=== PATIENT | female | born 1975 | race Caucasian/White ===

== ENCOUNTER 2017-01-21 14:14 | Emergency (ER) | payer OTHER ==
[~2017-01-21] VITALS: Ht 162.6 cm; Wt 114.3 kg
[~2017-01-21 14:14] MED LIST: ADVAIR 250/501 DISK IH; AMBIEN5 MG PO; DIFLUCAN150 MG PO; DUONEB 2.5-0.5 M3 ML IH; DURICEF500 MG PO; ERGOCALCIF50000 UNIT PO; ESTRACE1 MG PO; FOLIC ACID1 MG PO; KEFLEX250 MG PO; LEXAPRO20 MG PO; MELATONIN5 M1 PO; METRO GEL 1%60 GM TP; MS CONTIN,ORAMO15 M1 PO; PEPCID20 MG PO; PERCOCET 5/31 TABLET PO; PROZAC40 MG PO; SINGULAIR10 MG PO; TEMOVATE 0.05%30 GM TP; VENTOLIN HFA18 GM IH; XANAX0.25 MG PO; ZOFRAN4 MG PO
[2017-01-21 15:44] LABS: HEMATOCRIT 38.6 % (36.0-46.0); MCH 28.2 PG (29.0-34.0); MCHC 31.3 G/DL (30.0-36.0); MEAN PLAT.VOLUME 9.1 uM^3 (9.5-12.4); PLATELET COUNT 347 K/uL (156-360); RBC DIS.WIDTH-CV 13.1 % (11.8-14.6); RBC DIS.WIDTH-SD 43.2 % (39-53); RED BLOOD COUNT 4.29 M/uL (3.80-5.20); WHITE BLOOD COUNT 7.8 K/uL (4.1-10.2)
[2017-01-21 15:54] LABS: CHLORIDE 102 mEq/L (99-109); POTASSIUM 3.6 mEq/L (3.7-5.4); SODIUM 141 mEq/L (136-147)
[2017-01-21 15:56] LABS: GLUCOSE 79 mg/dL (70-99)
[2017-01-21 15:57] LABS: ANION GAP 12 MEQ/L (2-14)
[2017-01-21 15:59] LABS: GFR ESTIMATE (CALCULATED) > 59 mL/min/
[2017-01-21 16:00] LABS: UREA NITROGEN (BUN) 9 mg/dL (9-23)
[2017-01-21 16:04] LABS: TROP-I INTERPRETATION NEGATIVE; TROPONIN-I < 0.01 ng/mL (0.0-0.30)
[2017-01-21] MEDS ORDERED: ZITHROMAX250 MG PO (19:10)
[2017-01-21] MEDS ORDERED: ALBUTEROL0.63 MG/3 IH (19:10)
[2017-01-21] MEDS ORDERED: FLEXERIL10 MG PO (19:10)
[2017-01-21 19:26] LABS: TROP-I INTERPRETATION NEGATIVE; TROPONIN-I < 0.01 ng/mL (0.0-0.30)
[2017-01-21 19:31] VITALS: BP 110/95
== END 2017-01-21 19:35 | disposition home or self-care (01) ==
LOC: EME 14:14
PROVIDERS: Nurse Practitioner Family
DX: J18.9 Pneumonia, unspecified organism (principal); S20.211A Contusion of right front wall of thorax, initial encounter; J45.909 Unspecified asthma, uncomplicated; W01.0XXA Fall on same level from slipping, tripping and stumbling without subsequent striking against object, initial encounter; Y93.01 Activity, walking, marching and hiking; K21.9 Gastro-esophageal reflux disease without esophagitis; G89.29 Other chronic pain; Z88.0 Allergy status to penicillin; Z85.44 Personal history of malignant neoplasm of other female genital organs
CPT/HCPCS: 71020; 80048; 84484; 85027; 93005; 94640; 99281; 99283

== ENCOUNTER 2017-01-27 19:52 | Emergency (ER) | payer OTHER ==
[~2017-01-27] VITALS: Ht 162.6 cm; Wt 115.3 kg
[~2017-01-27 19:52] MED LIST changes: +ALBUTEROL0.63 MG/3 IH; +FLEXERIL10 MG PO; +ZITHROMAX250 MG PO
[2017-01-27 21:03] LABS: EOSINOPHIL (%) 3.7 % (0-5); EOSINOPHIL COUNT 0.3 K/uL (0-0.3); HEMATOCRIT 37.8 % (36.0-46.0); IMMATURE GRANULOCYTE (%) 0.5 % (0.0-0.7); INSTRUMENT ABS NEUTROPHIL CT 4.7 K/uL; LYMPHOCYTE COUNT 1.8 K/uL (1.0-2.8); MCH 28.4 PG (29.0-34.0); MCHC 31.5 G/DL (30.0-36.0); MCV 90.2 FL (83-99); MEAN PLAT.VOLUME 8.8 uM^3 (9.5-12.4); MONOCYTE COUNT 0.4 K/uL (0-0.8); NEUTROPHIL (%) 64.8 % (45-76); NEUTROPHIL COUNT 4.7 K/uL (1.8-6.4); PLATELET COUNT 318 K/uL (156-360); RBC DIS.WIDTH-CV 13.2 % (11.8-14.6); RED BLOOD COUNT 4.19 M/uL (3.80-5.20); WHITE BLOOD COUNT 7.3 K/uL (4.1-10.2)
[2017-01-27 21:11] LABS: CHLORIDE 107 mEq/L (99-109); POTASSIUM 4.1 mEq/L (3.7-5.4); SODIUM 142 mEq/L (136-147)
[2017-01-27 21:13] LABS: GLUCOSE 88 mg/dL (70-99)
[2017-01-27 21:14] LABS: ANION GAP 9 MEQ/L (2-14)
[2017-01-27 21:17] LABS: GFR ESTIMATE (CALCULATED) > 59 mL/min/
[2017-01-27 21:18] LABS: UREA NITROGEN (BUN) 11 mg/dL (9-23)
[2017-01-28 00:42] VITALS: BP 125/80
[2017-01-28] MEDS ORDERED: CYMBALTA20 MG PO (19:22)
[2017-01-28] MEDS ORDERED: [UNRECOGNIZED DRUG - OTHER] (19:23)
== END 2017-01-28 00:43 | disposition home or self-care (01) ==
LOC: EME 19:52
DX: L03.114 Cellulitis of left upper limb (principal); R11.2 Nausea with vomiting, unspecified; J45.909 Unspecified asthma, uncomplicated; K21.9 Gastro-esophageal reflux disease without esophagitis; G89.29 Other chronic pain; Z85.44 Personal history of malignant neoplasm of other female genital organs; Z88.0 Allergy status to penicillin
CPT/HCPCS: 80048; 83605; 85025; 87040; 99281; 99282; J3370; J7030

== ENCOUNTER 2017-09-14 21:57 | Emergency (ER) | payer OTHER ==
[~2017-09-14] VITALS: Ht 165.1 cm; Wt 116.9 kg
[~2017-09-14 21:57] MED LIST changes: +CYMBALTA20 MG PO; +CYMBALTA30 MG PO; +CYMBALTA60 MG PO; +NUCYNTA50 MG PO; +VIBRAMYCIN100 MG PO; +[UNRECOGNIZED DRUG - OTHER]
[2017-09-14 22:37] LABS: HEMATOCRIT 36.4 % (36.0-46.0); HEMOGLOBIN 11.7 G/DL (11.9-15.5); MCH 27.7 PG (29.0-34.0); MCHC 32.1 G/DL (30.0-36.0); MCV 86.1 FL (83-99); PLATELET COUNT 294 K/uL (156-360); RBC DIS.WIDTH-CV 13.5 % (11.8-14.6); RBC DIS.WIDTH-SD 42.1 % (39-53); RED BLOOD COUNT 4.23 M/uL (3.80-5.20)
[2017-09-14 22:49] LABS: CHLORIDE 102 mEq/L (99-109); POTASSIUM 3.6 mEq/L (3.7-5.4); SODIUM 139 mEq/L (136-147)
[2017-09-14 22:50] LABS: GLUCOSE 102 mg/dL (70-99)
[2017-09-14 22:54] LABS: CREATININE 0.7 mg/dL (0.6-1.3); GFR ESTIMATE (CALCULATED) > 59 mL/min/
[2017-09-14 22:55] LABS: UREA NITROGEN (BUN) 11 mg/dL (9-23)
[2017-09-15 04:30] VITALS: BP 110/74
[2017-09-15] MEDS ORDERED: NYSTATIN15 GM TP ×2 (19:14→19:18)
[2017-09-15] MEDS ORDERED: MYCOSTATIN1 APPLICAT TP (19:15)
[2017-09-15] MEDS ORDERED: CEPHALEXIN250 MG PO (19:17)
== END 2017-09-15 04:44 | disposition home or self-care (01) ==
LOC: EXP 21:57 → EME 21:57 → EXP 09-15 04:44
DX: J45.901 Unspecified asthma with (acute) exacerbation (principal); L03.115 Cellulitis of right lower limb; G89.29 Other chronic pain; K21.9 Gastro-esophageal reflux disease without esophagitis; F41.9 Anxiety disorder, unspecified; Z79.891 Long term (current) use of opiate analgesic; Z79.51 Long term (current) use of inhaled steroids; Z85.44 Personal history of malignant neoplasm of other female genital organs; Z88.0 Allergy status to penicillin
CPT/HCPCS: 71046; 80048; 85027; 94640; 99281; 99284; J0696; J3370

== ENCOUNTER 2017-11-22 12:03 | Inpatient (IN) | payer OTHER ==
[~2017-11-22] VITALS: Ht 162.6 cm; Wt 113.4 kg
[~2017-11-22 12:03] MED LIST changes: +CEPHALEXIN250 MG PO; +MYCOSTATIN1 APPLICAT TP; +NYSTATIN15 GM TP
[2017-11-22 12:42] LABS: BASOPHIL (%) 0.1 % (0-1); EOSINOPHIL (%) 0.6 % (0-5); EOSINOPHIL COUNT 0.1 K/uL (0-0.3); HEMATOCRIT 35.6 % (36.0-46.0); HEMOGLOBIN 11.6 G/DL (11.9-15.5); IMMATURE GRANULOCYTE (%) 0.4 % (0.0-0.7); LYMPHOCYTE (%) 10.3 % (15-42); LYMPHOCYTE COUNT 1.3 K/uL (1.0-2.8); MCH 27.4 PG (29.0-34.0); MCHC 32.6 G/DL (30.0-36.0); MONOCYTE (%) 1.8 % (3-12); MONOCYTE COUNT 0.2 K/uL (0-0.8); NEUTROPHIL (%) 86.8 % (45-76); NEUTROPHIL COUNT 10.9 K/uL (1.8-6.4); PLATELET COUNT 322 K/uL (156-360); RBC DIS.WIDTH-SD 45.9 % (39-53); RED BLOOD COUNT 4.24 M/uL (3.80-5.20); WHITE BLOOD COUNT 12.5 K/uL (4.1-10.2)
[2017-11-22 12:53] LABS: CHLORIDE 103 mEq/L (99-109); POTASSIUM 4.1 mEq/L (3.7-5.4); SODIUM 138 mEq/L (136-147)
[2017-11-22 12:55] LABS: GLUCOSE 99 mg/dL (70-99)
[2017-11-22 12:58] LABS: CREATININE 0.9 mg/dL (0.6-1.3); GFR ESTIMATE (CALCULATED) > 59 mL/min/
[2017-11-22 12:59] LABS: UREA NITROGEN (BUN) 15 mg/dL (9-23)
[2017-11-22 14:46] LABS: INTER. NORMALIZED RATIO 1.2
[2017-11-22] MEDS ORDERED: CEPHALEXIN500 MG PO (17:33)
[2017-11-22] MEDS ORDERED: ENDOCET 5-3251 EACH PO (17:34)
[2017-11-22] MEDS ORDERED: MORPHINE SULFAT15 M1 PO (17:38)
[2017-11-22] MEDS ORDERED: ATARAX,VISTARIL25 MG PO (17:39)
[2017-11-22] MEDS ORDERED: MONTELUKAST SOD10 MG PO (17:39)
[2017-11-22] MEDS ORDERED: FAMOTIDINE20 MG PO (17:39)
[2017-11-22] MEDS ORDERED: DULOXETINE HCL30 MG PO (17:40)
[2017-11-22] MEDS ORDERED: DULOXETINE HCL60 MG PO (17:40)
[2017-11-22] MEDS ORDERED: KETOCONAZOLE60 GM TP (17:40)
[2017-11-22] MEDS ORDERED: POTASSIUM CHLO20 ME1 PO (17:40)
[2017-11-22] MEDS ORDERED: ALPRAZOLAM0.25 M2 PO (17:44)
[2017-11-22] MEDS ORDERED: TRIAMCINOLONE A15 GM TP (17:50)
[2017-11-22 19:42] VITALS: BP 124/80
[2017-11-22] MEDS ORDERED: NAPROSYN500 MG PO (22:45)
[2017-11-22] MEDS ORDERED: OMEGA-3 FISH O1 EAC7 PO (22:51)
[2017-11-22] MEDS ORDERED: VITAMIN C1000 MG PO (22:59)
[2017-11-22 23:51] VITALS: BP 100/55; BP 132/71
[2017-11-23 03:52] VITALS: BP 112/57
[2017-11-23 05:49] LABS: HEMATOCRIT 30.1 % (36.0-46.0); MCH 26.6 PG (29.0-34.0); MCHC 31.2 G/DL (30.0-36.0); MCV 85.3 FL (83-99); RBC DIS.WIDTH-CV 15.3 % (11.8-14.6); RBC DIS.WIDTH-SD 47.3 % (39-53); RED BLOOD COUNT 3.53 M/uL (3.80-5.20); WHITE BLOOD COUNT 5.4 K/uL (4.1-10.2)
[2017-11-23 05:52] LABS: HEMOGLOBIN 9.4 G/DL (11.9-15.5); PLATELET COUNT 216 K/uL (156-360)
[2017-11-23 05:58] LABS: CHLORIDE 106 MEQ/L (99-109); CREATININE 0.6 MG/DL (0.6-1.3); GFR ESTIMATE (CALCULATED) > 59 mL/min/; GLUCOSE 102 mg/dL (70-99); POTASSIUM 4.2 MEQ/L (3.7-5.4); SODIUM 143 MEQ/L (136-147); UREA NITROGEN (BUN) 16 mg/dL (9-23)
[2017-11-23 07:34] VITALS: BP 114/65
[2017-11-23 11:46] VITALS: BP 120/72
[2017-11-23 15:52] VITALS: BP 125/56
[2017-11-23 20:21] VITALS: BP 131/64
[2017-11-24 00:25] VITALS: BP 118/62
[2017-11-24 04:00] VITALS: BP 124/55
[2017-11-24 06:42] LABS: HEMATOCRIT 29.8 % (36.0-46.0); HEMOGLOBIN 9.2 G/DL (11.9-15.5); MCH 26.6 PG (29.0-34.0); MCHC 30.9 G/DL (30.0-36.0); MCV 86.1 FL (83-99); PLATELET COUNT 238 K/uL (156-360); RBC DIS.WIDTH-CV 15.4 % (11.8-14.6); RBC DIS.WIDTH-SD 48.9 % (39-53); RED BLOOD COUNT 3.46 M/uL (3.80-5.20); WHITE BLOOD COUNT 4.9 K/uL (4.1-10.2)
[2017-11-24 07:08] LABS: CHLORIDE 109 MEQ/L (99-109); CREATININE 0.6 MG/DL (0.6-1.3); GFR ESTIMATE (CALCULATED) > 59 mL/min/; GLUCOSE 88 mg/dL (70-99); POTASSIUM 4.9 MEQ/L (3.7-5.4); SODIUM 145 MEQ/L (136-147); UREA NITROGEN (BUN) 8 mg/dL (9-23)
[2017-11-24 07:47] VITALS: BP 110/62
[2017-11-24 09:03] LABS: BASOPHIL (%) 0.2 % (0-1); EOSINOPHIL (%) 9.6 % (0-5); EOSINOPHIL COUNT 0.5 K/uL (0-0.3); IMMATURE GRANULOCYTE (%) 0.4 % (0.0-0.7); LYMPHOCYTE (%) 32.6 % (15-42); LYMPHOCYTE COUNT 1.6 K/uL (1.0-2.8); MONOCYTE (%) 7.6 % (3-12); MONOCYTE COUNT 0.4 K/uL (0-0.8); NEUTROPHIL (%) 49.6 % (45-76); NEUTROPHIL COUNT 2.4 K/uL (1.8-6.4); PLAT.SUFFICIENCY ADEQUATE
[2017-11-24 12:13] VITALS: BP 146/77
[2017-11-24] MEDS ORDERED: CEPHALEXIN500 MG PO (13:58)
[2017-11-24] MEDS ORDERED: AFRIN,GENASAL D15 ML BOTH NARES (14:07)
== END 2017-11-24 15:19 | disposition home or self-care (01) | DRG 603 ==
LOC: EME 12:03 → 5SOUTH 16:48 → ENRESERV 16:48 → EDOF 16:48 → ENRESERV 17:08 → 5SOUTH 19:30
PROVIDERS: Internal Medicine; Nurse Practitioner Family; Physician Assistant
DX: L03.116 Cellulitis of left lower limb (principal); Z68.41 Body mass index [BMI] 40.0-44.9, adult; C51.9 Malignant neoplasm of vulva, unspecified; I89.0 Lymphedema, not elsewhere classified; J45.909 Unspecified asthma, uncomplicated; E66.9 Obesity, unspecified; G89.4 Chronic pain syndrome; F32.9 Major depressive disorder, single episode, unspecified; F41.9 Anxiety disorder, unspecified; G47.00 Insomnia, unspecified; R04.0 Epistaxis
CPT/HCPCS: 71046; 80048; 81003; 83605; 85025; 85027; 85610; 85730; 87040; 93971; 94640; 94760; 94799; 99281; 99285; J0696; J1650; J2270; J3370; J7030; Q0177

== ENCOUNTER 2018-01-01 08:23 | Day surgery (SDC) | payer OTHER ==
[~2018-01-01] VITALS: Ht 162.6 cm; Wt 113.0 kg
[~2018-01-01 08:23] MED LIST changes: +AFRIN,GENASAL D15 ML BOTH NARES; +ALPRAZOLAM0.25 M2 PO; +ATARAX,VISTARIL25 MG PO; +CEPHALEXIN500 MG PO; +DULOXETINE HCL30 MG PO; +DULOXETINE HCL60 MG PO; +ENDOCET 5-3251 EACH PO; +FAMOTIDINE20 MG PO; +KETOCONAZOLE60 GM TP; +MONTELUKAST SOD10 MG PO; +MORPHINE SULFAT15 M1 PO; +NAPROSYN500 MG PO; +OMEGA-3 FISH O1 EAC7 PO; +POTASSIUM CHLO20 ME1 PO; +TRIAMCINOLONE A15 GM TP; +VITAMIN C1000 MG PO
[2018-01-06] MEDS ORDERED: COMPAZINE10 MG PO (07:23)
[2018-01-06] MEDS ORDERED: ONDANSETRON HCL8 MG PO (07:23)
== END 2018-01-01 10:08 | disposition home or self-care (01) ==
LOC: CATH 08:23
DX: Z45.2 Encounter for adjustment and management of vascular access device (principal); I87.8 Other specified disorders of veins; C51.9 Malignant neoplasm of vulva, unspecified
CPT/HCPCS: C1751; C1894; J1644; J2250; J3010; S0020